=== PATIENT | female | born 1995 | race Caucasian/White ===

== ENCOUNTER 2021-12-27 05:06 | Emergency (ER) | payer SELFPAY ==
[2021-12-27] MEDS ORDERED: Sodium Chloride 0.9% 2.5 ML Syringe FLUSH PRN (05:31)
[2021-12-27] MEDS ORDERED: Ondansetron 4 MG/2 ML SDV IVPUSH ONE ×2 (05:31→08:35)
[2021-12-27] MEDS ORDERED: Sodium Chloride 0.9% 10 ML Syringe FLUSH PRN (05:31)
[2021-12-27] MEDS ORDERED: Sodium Chloride 0.9% 1,000 ML IV ONE ×2 (05:31→06:25)
[2021-12-27] MEDS ORDERED: Ketorolac 30 MG/ML SDV IVPUSH ONE (05:34)
[2021-12-27 05:56] LABS: BLOOD UREA NITROGEN,BUN 16 mg/dL (7.0-18.0); CARBON DIOXIDE,CO2 25.1 mmol/L (21.0-32.0); CHLORIDE,CL 103 mmol/L (98-107); GLUCOSE RANDOM 183 mg/dL (74-106); LIPASE 42 U/L (73-393); POTASSIUM,K 3.4 mmol/L (3.5-5.1); SODIUM,NA 139 mmol/L (136-145)
[2021-12-27] MEDS ORDERED: fentaNYL 50 MCG/ML SDV IVPUSH ONE (06:03)
[2021-12-27] MEDS ORDERED: Iopamidol 755 MG/ML 500 ML Multipack Bottle IVPUSH STA (06:55)
[2021-12-27] MEDS ORDERED: LORazepam 2 MG/ML SDV IM ONE (08:20)
[2021-12-27] MEDS ORDERED: Morphine 4 MG/ML VIAL IVPUSH ONE (08:35)
[2021-12-27] MEDS ORDERED: Morphine 4 MG/ML VIAL IM ONE (08:37)
[2021-12-27] MEDS ORDERED: Ondansetron 4 MG Tab.DIS PO ONE (08:37)
[2021-12-28 12:07] LABS: C.TRACHOMATIS BY TMA Negative (Negative); N.GONORRHOEAE BY TMA Negative (Negative)
== END 2021-12-27 09:04 | disposition home or self-care (01) ==
LOC: MW.ED 05:06
DX: N94.6 Dysmenorrhea, unspecified (principal)
CPT/HCPCS: 36415; 74177; 80053; 81001; 81025; 83690; 85025; 87491; 87591; 96372; 96374; 96375; 99284; A9270; J1885; J2060; J2270; J2405; J3010; J7030; Q9967

== ENCOUNTER 2022-02-14 08:06 | Emergency (ER) | payer SELFPAY ==
[2022-02-14] MEDS ORDERED: Morphine 4 MG/ML VIAL IVPUSH ONE (08:26)
[2022-02-14] MEDS ORDERED: Ondansetron 4 MG/2 ML SDV IVPUSH ONE (08:26)
[2022-02-14] MEDS ORDERED: Dextrose 5%-Lactated Ringers 1,000 ML IV SCH (08:30)
[2022-02-14 08:58] LABS: BLOOD UREA NITROGEN,BUN 16 mg/dL (7.0-18.0); CARBON DIOXIDE,CO2 24.3 mmol/L (21.0-32.0); CHLORIDE,CL 104 mmol/L (98-107); GLUCOSE RANDOM 169 mg/dL (74-106); LIPASE 27 U/L (73-393); POTASSIUM,K 4.1 mmol/L (3.5-5.1); SODIUM,NA 138 mmol/L (136-145)
[2022-02-14] MEDS ORDERED: Lactated Ringers 1,000 ML IV STA (09:00)
[2022-02-14] MEDS ORDERED: metroNIDAZOLE/Normal Saline 500 MG in Premix Bag 1 BAG IV ONE (10:05)
[2022-02-14] MEDS ORDERED: fentaNYL 50 MCG/ML SDV IVPUSH ONE (10:05)
[2022-02-14] MEDS ORDERED: cefTRIAXone 1 GM in Sodium Chloride 0.9% 50 ML IV ONE (10:05)
[2022-02-14] MEDS ORDERED: Iopamidol 755 MG/ML 500 ML Multipack Bottle IVPUSH STA (13:54)
== END 2022-02-14 12:28 | disposition home or self-care (01) ==
LOC: MW.ED 08:06
DX: K75.9 Inflammatory liver disease, unspecified (principal); Z20.822 Contact with and (suspected) exposure to COVID-19
CPT/HCPCS: 36415; 74177; 76705; 80053; 81001; 81025; 83605; 83690; 85025; 85610; 86705; 86706; 86709; 86803; 87040; 87340; 87635; 96361; 96365; 96368; 96375; 99284; J0696; J2270; J2405; J3010; J3490; J7120; J7121; Q9967; U0002

== ENCOUNTER 2022-03-14 11:26 | Emergency (ER) | payer SELFPAY ==
[2022-03-14] MEDS ORDERED: Sodium Chloride 0.9% 2.5 ML Syringe FLUSH PRN (11:50)
[2022-03-14] MEDS ORDERED: Sodium Chloride 0.9% 10 ML Syringe FLUSH PRN (11:50)
[2022-03-14] MEDS ORDERED: Sodium Chloride 0.9% 1,000 ML IV ONE ×2 (11:50→13:24)
[2022-03-14] MEDS ORDERED: Morphine 4 MG/ML VIAL IVPUSH ONE ×2 (11:50→13:29)
[2022-03-14] MEDS ORDERED: Ondansetron 4 MG/2 ML SDV IVPUSH ONE ×2 (11:50→13:29)
[2022-03-14 12:34] LABS: CARBON DIOXIDE,CO2 21.6 mmol/L (21.0-32.0); POTASSIUM,K 3.6 mmol/L (3.5-5.1)
[2022-03-14] MEDS ORDERED: fentaNYL 50 MCG/ML SDV IVPUSH ONE (12:35)
== END 2022-03-14 16:35 | disposition home or self-care (01) ==
LOC: MW.ED 11:26
DX: O99.891 Other specified diseases and conditions complicating pregnancy (principal); R10.33 Periumbilical pain; R19.7 Diarrhea, unspecified; Z3A.01 Less than 8 weeks gestation of pregnancy
CPT/HCPCS: 36415; 76817; 80053; 81001; 84702; 84703; 85025; 86140; 96361; 96374; 96375; 96376; 99284; J2270; J2405; J3010; J3490; J7030

== ENCOUNTER 2022-03-21 12:15 | Emergency (ER) | payer SELFPAY ==
[2022-03-21 13:23] LABS: CARBON DIOXIDE,CO2 21.9 mmol/L (21.0-32.0)
== END 2022-03-21 14:09 | disposition home or self-care (01) ==
LOC: MW.ED 12:15
DX: O9A.23 Injury, poisoning and certain other consequences of external causes complicating the puerperium (principal); T75.4XXA Electrocution, initial encounter; Z3A.01 Less than 8 weeks gestation of pregnancy
CPT/HCPCS: 36415; 80053; 82550; 84484; 85025; 93005; 93010; 99283

== ENCOUNTER 2022-04-02 10:08 | Emergency (ER) | payer SELFPAY ==
[2022-04-02] MEDS ORDERED: Ondansetron 4 MG/2 ML SDV IVPUSH ONE (10:18)
[2022-04-02] MEDS ORDERED: Sodium Chloride 0.9% 1,000 ML IV ONE (10:18)
[2022-04-02] MEDS ORDERED: Morphine 2 MG/ML SYRINGE IVPUSH ONE (10:33)
[2022-04-02] MEDS ORDERED: Morphine 4 MG/ML VIAL IVPUSH ONE (10:52)
[2022-04-02] MEDS ORDERED: Alum Hydro/Mag Hydro/Simeth XS 15 ML, Lidocaine 2% 5 ML PO ONE ×2 (10:52)
[2022-04-02] MEDS ORDERED: Promethazine 25 MG/ML SDV IM ONE (11:05)
[2022-04-02 11:26] LABS: CARBON DIOXIDE,CO2 23.7 mmol/L (21.0-32.0); POTASSIUM,K 3.2 mmol/L (3.5-5.1)
[2022-04-02] MEDS ORDERED: Cephalexin 500 MG Cap PO ONE (12:52)
== END 2022-04-02 14:44 | disposition home or self-care (01) ==
LOC: MW.ED 10:08
DX: O23.41 Unspecified infection of urinary tract in pregnancy, first trimester (principal); N39.0 Urinary tract infection, site not specified; O21.9 Vomiting of pregnancy, unspecified; Z3A.08 8 weeks gestation of pregnancy; Z20.822 Contact with and (suspected) exposure to COVID-19
CPT/HCPCS: 36415; 76705; 80053; 81001; 83690; 84702; 85025; 87086; 87635; 96361; 96372; 96374; 96375; 99284; A9270; J2270; J2405; J2550; J7030; U0002